=== PATIENT | female | born 1980 | race Caucasian/White ===

== ENCOUNTER 2016-12-20 02:20 | Emergency (ER) | payer MEDICAID, OTHER ==
[~2016-12-20] VITALS: Ht 165.1 cm; Wt 54.9 kg
[2016-12-20 02:36] VITALS: BP 132/92
--- NOTE | 2016-12-20 02:42 | NUR ---
PT TAKEN TO OF
--- NOTE | 2016-12-20 02:43 | NUR ---
Dr. Hyde evaluating patient
--- NOTE | 2016-12-20 02:50 | NUR ---
RAKAN WITH C/O SOB, SORETHROAT, EAR ACHE , PRODUCTIVE COUGH, AND CHEST PAIN WHEN SHE COUGH, FOR 4 DAYS NOW, SEEN IN [facility] THIS MORNING WITH PRESCRIPTION, BUT SHE WASNT ABLE TO BUY.
--- NOTE | 2016-12-20 03:16 | NUR ---
PT TAKEN TO XRAY
--- NOTE | 2016-12-20 03:26 | NUR ---
PT RETURN FROM XRAY
--- NOTE | 2016-12-20 06:50 | NUR ---
Patient discharged with v/s stable. Written and verbal after care instructions given and explained. Patient verbalized understanding. Ambulatory with steady gait. All questions addressed prior to discharge. Advised to follow up with PMD.
[2016-12-20 06:58] VITALS: BP 125/85
== END 2016-12-20 06:50 | disposition home or self-care (01) ==
LOC: MED 02:20
DX: J20.9 Acute bronchitis, unspecified (principal); R03.0 Elevated blood-pressure reading, without diagnosis of hypertension; G43.909 Migraine, unspecified, not intractable, without status migrainosus; F17.210 Nicotine dependence, cigarettes, uncomplicated; Z87.442 Personal history of urinary calculi; Z86.73 Personal history of transient ischemic attack (TIA), and cerebral infarction without residual deficits; Z91.013 Allergy to seafood; Z91.018 Allergy to other foods; Z71.6 Tobacco abuse counseling